=== PATIENT | male | born 1940 | race Caucasian/White ===

== ENCOUNTER 2017-03-06 15:06 | Inpatient (IN) | payer MEDICARE, MEDICAID ==
[~2017-03-06] VITALS: Ht 172.7 cm; Wt 99.8 kg
[~2017-03-06 15:06] MED LIST: ACET-2799 PO; ALLO100T PO; ASCO-375 PO; ASPI-605 PO; ATOR80TA PO; BACL10TA PO; BISA10SU8 RC; CLOP75TA15 PO; Cephalexin Monohydrate PO; DOCU-141 PO; DULO30CA2 PO; FERR-58 PO; FLUD0.1T PO; FOLI0.8C PO; FURO-152 PO; GABA-534 PO; HYDR-3026 PO; HYDR-3326 PO; HYDR-552 PO; LACT10SO7 PO; LEVE500T20 PO; LORA10TA7 PO; MAGN400O6 PO; MIDO5TAB PO; POTA10CA43 PO; RISP0.5T5 PO; TEMA15CA5 PO; TRAZ-144 PO
[2017-03-06] MEDS ORDERED: HYDR30CR10 TP (15:37)
[2017-03-06] MEDS ORDERED: GEL100GE TOP (15:37)
--- NOTE | 2017-03-06 15:38 | NUR ---
PT IS IN ROOM #2B. DR LIU EVALUATED THE PT.
[2017-03-06 16:03] LABS: BASOPHILS % (AUTO) 0.6 % (0.0-2.0); EOSINOPHILS # (AUTO) 0.4 K/uL (0.0-0.7); EOSINOPHILS % (AUTO) 5.3 % (0.0-7.0); HEMOGLOBIN 10.7 G/DL (14.0-18.0); LYMPHOCYTES # (AUTO) 1.4 K/UL (0.8-4.8); LYMPHOCYTES % (AUTO) 18.4 % (20.5-51.5); MEAN CORPUSCULAR HEMOGLOBIN 23.1 UUG (27.0-31.0); MEAN CORPUSCULAR HGB CONC 32 g/dL (32.0-37.0); MEAN CORPUSCULAR VOLUME 73.6 FL (82.0-92.0); MONOCYTES # (AUTO) 1.1 K/UL (0.1-1.30); MONOCYTES % (AUTO) 14.5 % (0.0-11.0); NEUTROPHILS # (AUTO) 4.7 K/UL (1.8-8.9); NEUTROPHILS % (AUTO) 61.2 % (38.5-71.5); PLATELET COUNT (AUTO) 218 K/UL (150-450); RED BLOOD CELL COUNT(AUTO) 4.62 MIL/UL (4.7-6.1); WHITE BLOOD COUNT (AUTO) 7.6 K/UL (4.0-11.2)
[2017-03-06 16:08] LABS: CARBON DIOXIDE 28 mmol/L (21-32); CHLORIDE 110 mmol/L (98-107); CREATININE 2.5 mg/dL (0.6-1.3); GLUCOSE 103 mg/dL (74-106); UREA NITROGEN, BLOOD 39 mg/dL (7-18)
[2017-03-06 16:09] LABS: ETHANOL < 3 MG/DL (0-0)
[2017-03-06 16:15] LABS: ALANINE AMINOTRANSFERASE 20 U/L (16-63); ALKALINE PHOSPHATASE 74 U/L (50-136); ASPARTATE AMINOTRANSFERASE 9 U/L (15-37); BILIRUBIN,DIRECT 0.1 mg/dL (0.0-0.2); BILIRUBIN,TOTAL 0.3 mg/dL (0.2-1.0); TOTAL PROTEIN, SERUM 6.6 g/dL (6.4-8.2)
--- NOTE | 2017-03-06 16:24 | NUR ---
MIKE DE LA GARZA WAS CALLED TO EVALUATE THE PT. RIKI IS 30 MINUTES.
[2017-03-06 17:02] LABS: BASOPHILS % (MANUAL) 2 % (0-2); EOSINOPHILS % (MANUAL) 2 % (0-8); LYMPHOCYTES % (MANUAL) 18 % (20-40); METAMYELOCYTES % 1 % (0-1); MONOCYTES % (MANUAL) 13 % (2-10); MYELOCYTES % 1 % (0-0); NEUTROPHILS % (MANUAL) 63 % (42-75)
[2017-03-06] MEDS ORDERED: HYDROCODONE/APAP 5-325MG TABLET PO ONE (17:15)
[2017-03-06] MEDS ORDERED: HYDROCODONE/APAP 5-325MG TABLET ONE (17:33)
--- NOTE | 2017-03-06 19:10 | NUR ---
Pt arrived on a gurney from ER. Pt is from the [facility]. Pt is on a 5150 GD for kicking, fondling, and making aggressive statements to nurses. Pt inappropriately touches himself and others. Upon admission pt is cooperative, calm, grabbing staff forearms. Pt has poor boundaries setting. Pt body was assessed. Pt has possible bursitis on both elbows,pitting edema on left foot +2, rash on left groin and back. photos were taken and put into chart. Pt denies suicidal ideation and contracts for safety inside and outside of the hospital.
[2017-03-06] MEDS ORDERED: LORAZEPAM 1 MG TABLET PO PRN (20:15)
[2017-03-06] MEDS ORDERED: ACETAMINOPHEN 325 MG TABLET PO PRN (20:15)
[2017-03-06] MEDS ORDERED: ZOLPIDEM 5 MG TABLET PO PRN (20:15)
[2017-03-06] MEDS ORDERED: MAGNESIUM HYDROXIDE 30 ML LIQUID UDC PO PRN (20:15)
[2017-03-06] MEDS ORDERED: MAG HYDROX/AL HYDROX/SIMETH 30 ML LIQUID UDC PO PRN (20:15)
[2017-03-06] MEDS ORDERED: HYDROCODONE/APAP 5-325MG TABLET PO PRN (21:00)
[2017-03-06] MEDS ORDERED: LACTULOSE 20 G/30 ML LIQUID UDC PO PRN (21:00)
[2017-03-06] MEDS ORDERED: CLOPIDOGREL 75 MG TABLET PO SCH (21:00)
[2017-03-06] MEDS ORDERED: BISACODYL 10 MG SUPP.RECT RC PRN (21:00)
[2017-03-06] MEDS ORDERED: MIDODRINE HCL 5 MG TABLET PO SCH (21:00)
[2017-03-06] MEDS ORDERED: LORATADINE 10 MG TABLET PO SCH (21:00)
[2017-03-06 21:03] VITALS: BP 118/68
[2017-03-06] MEDS: ATORVASTATIN 40 MG TABLET PO SCH (21:47)
[2017-03-06] MEDS: BACLOFEN 10 MG TABLET PO SCH (21:48)
[2017-03-06] MEDS: HYDROCORTISONE 1% CREAM 30 GM TUBE TP SCH (21:50)
[2017-03-06] MEDS: MIDODRINE HCL 2.5 MG TABLET PO SCH (22:00)
[2017-03-06] MEDS: DOCUSATE SODIUM 100 MG CAPSULE PO SCH (22:01)
[2017-03-06] MEDS: hydrOXYzine HCL 25 MG TABLET PO PRN (22:01)
[2017-03-06] MEDS: GABAPENTIN 300 MG CAPSULE PO SCH (22:02)
[2017-03-06] MEDS: LEVETIRACETAM 500 MG TABLET PO SCH (22:02)
[2017-03-07] MEDS: MIDODRINE HCL 2.5 MG TABLET PO SCH ×3 (06:00→22:01)
[2017-03-07 07:30] VITALS: BP 145/69
[2017-03-07] MEDS: BACLOFEN 10 MG TABLET PO SCH ×3 (09:00→17:12)
[2017-03-07] MEDS ORDERED: CLOPIDOGREL 75 MG TABLET PO SCH (09:00)
[2017-03-07] MEDS ORDERED: MISCELLANEOUS MED TP SCH (09:00)
[2017-03-07] MEDS: FLUDROCORTISONE ACETATE 0.1 MG TABLET PO SCH (09:00)
[2017-03-07] MEDS: HYDROCORTISONE 1% CREAM 30 GM TUBE TP SCH ×2 (09:00→17:12)
[2017-03-07] MEDS ORDERED: DULOXETINE 30 MG CAPSULE.DR PO SCH (09:15)
[2017-03-07] MEDS: GABAPENTIN 300 MG CAPSULE PO SCH ×2 (10:10→16:59)
[2017-03-07] MEDS: ASPIRIN EC 81 MG TABLET.DR PO SCH (10:10)
[2017-03-07] MEDS: FOLIC ACID 0.4 MG TABLET PO SCH (10:10)
[2017-03-07] MEDS: FUROSEMIDE 20 MG TABLET PO SCH (10:11)
[2017-03-07] MEDS: POTASSIUM CHLORIDE 10 MEQ CAPSULE.SA PO SCH (10:11)
[2017-03-07] MEDS: FERROUS SULFATE 325 MG TABEC PO SCH (10:11)
[2017-03-07] MEDS: ASCORBIC ACID 500 MG TABLET PO SCH (10:11)
[2017-03-07] MEDS: LEVETIRACETAM 500 MG TABLET PO SCH ×2 (10:11→16:58)
[2017-03-07] MEDS: DOCUSATE SODIUM 100 MG CAPSULE PO SCH ×3 (10:12→17:00)
[2017-03-07] MEDS: ALLOPURINOL 100 MG TABLET PO SCH (10:12)
--- NOTE | 2017-03-07 10:43 | NUR ---
Initial discharge instructions: Pt resides at the [facility] [[address] [place], [place],[address]].Per pt,he would like to return back to the facility.ANNE attempted to contact Christina [phone] and left a voicemail requesting a call back.Pt's daughter,Consuelo Casas [phone] was called as well.ANNE will speak with pt,daughter,and MD regarding appropriate discharge plans.ANNE will form a safe and proper discharge.
--- NOTE | 2017-03-07 11:00 | NUR ---
RE PLAVIX: SPOKE WITH JESUS AT [facility] TO VERIFY INDICATION AND DOSAGE OF PLAVIX, STATES THE COMPUTERS ARE DOWN AND SHE WILL CALL ME BACK TO LET ME KNOW.
--- NOTE | 2017-03-07 12:00 | NUR ---
SPOKE WITH DAUGHTER TRENA, SHE IS ASKING THAT WE DISCHARGE THE PT BACK TO [facility] TODAY. I EXPLAINED THAT THE PT IS ON A 72 HR INVOLUNTARY HOLD, TRENA INSISTS THAT PT SHOULD BE DISCHARGED ANYWAYS. PAGED DR SWENSON SO TRENA COULD SPEAK WITH HIM. UPON FOLLOW UP WITH DR SWENSON, HE STATES THAT HE WOULD BE OK WITH DISCHARGING THE PT ONLY IF [facility] WOULD TAKE THE BACK TODAY. TRENA STATES SHE IS GOING TO HAVE A MEETING WITH THE STAFF AT [facility] AND WILL CALL US IF THEY AGREE TO TAKE PT BACK TODAY.
--- NOTE | 2017-03-07 13:46 | NUR ---
RE PLACEMENT: SPOKE WITH CHARLOTTE FROM [facility]. SHE STATES THAT SHE BELIEVES THEY WILL TAKE THE PT BACK, BUT WOULD LIKE THE PT TO BE STABILIZED FIRST.
--- NOTE | 2017-03-07 14:27 | NUR ---
patient sleeping couldnt wake for meds
[2017-03-07 15:00] VITALS: BP 121/68
--- NOTE | 2017-03-07 15:23 | NUR ---
1500: DAUGHTER TRENA IN UNIT UPSET, YELLING AT NURSES AND TALKING OVER THEM, DEMANDING PT BE DISCHARGED, REPEATEDLY THREATENING TO ARA. EXPLAINED AGAIN THAT PT IS ON A INVOLUNTARY HOLD AND CAN NOT BE RELEASED AT THIS TIME, NOTIFIED HER THAT ALTHOUGH DR SWENSON WAS WILLING TO RELEASE THE HOLD IF THE [facility] WAS WILLING TO TAKE PT BACK TODAY, THAT CHARLOTTE FROM [facility] STATED THEY WANTED THE PT TO STAY HERE FOR EVALUATION AND TO BE STABILIZED BEFORE ACCEPTING PT BACK. TRENA WAS ASKED TO STEP OFF THE UNIT BECAUSE VISITING HOURS WERE OVER, SHE REFUSED TO LEAVE SO SECURITY AND ADMINSTRATION WAS CALLED TO ESCORT HER OFF THE UNIT.
--- NOTE | 2017-03-07 18:34 | NUR ---
INAPPROPRIATE PT BEHAVIOR: STAFF PROVIDING PERSONAL CARE TO PT REPORTS THAT PT MADE 6 ATTEMPTS THROUGHOUT THE SHIFT TO INAPPROPRIATELY TOUCH FEMALE STAFF MEMBERS (GRAB THEIR BREASTS AND OR GENITAL REGION). STAFF MEMBER STATES THAT SHE HAD TO REPEATEDLY BLOCK HIS HAND AND PUSH HIS ARM AWAY OR JUMP BACK TO AVOID BEING GROPED.
--- NOTE | 2017-03-07 18:43 | NUR ---
patients daughter came in today very dis ruptive to unit and to staff regarding getting her father out of here and he did nothing to those ladies , called DR rosenbaum and she spoke to him back and forth confusion , patient safe and positioned and bathed . Patient is med compliant andeats 100% AUTO PARTS CLERK NOTED AND LSIDE PLUS 2 PITTING EDEMA , PT IS TOTAL CARE INCONTINENT OF BOWEL AND BLADDER WITH SKIN CARE, SIDE RAILS UP TIMES TWO FOR SAFETY
[2017-03-07] MEDS: ATORVASTATIN 40 MG TABLET PO SCH (20:09)
[2017-03-07] MEDS: QUETIAPINE FUMARATE 25 MG TABLET PO SCH (20:10)
[2017-03-07 21:58] VITALS: BP 136/74
[2017-03-08] MEDS: MIDODRINE HCL 2.5 MG TABLET PO SCH ×3 (06:19→21:42)
--- NOTE | 2017-03-08 06:37 | NUR ---
patient slept for approx 7 hrs through the night. no inappropriate sexual behavior was noted during the shift. no aggression, anxiety was noted during the shift. pt calm and cooperative with medication regiment and plan of care.
[2017-03-08 07:30] VITALS: BP 133/80
[2017-03-08] MEDS: GABAPENTIN 300 MG CAPSULE PO SCH ×2 (09:01→16:32)
[2017-03-08] MEDS: ASPIRIN EC 81 MG TABLET.DR PO SCH (09:01)
[2017-03-08] MEDS: FUROSEMIDE 20 MG TABLET PO SCH (09:01)
[2017-03-08] MEDS: BACLOFEN 10 MG TABLET PO SCH ×3 (09:01→16:34)
[2017-03-08] MEDS: FERROUS SULFATE 325 MG TABEC PO SCH (09:01)
[2017-03-08] MEDS: ALLOPURINOL 100 MG TABLET PO SCH (09:01)
[2017-03-08] MEDS: FLUDROCORTISONE ACETATE 0.1 MG TABLET PO SCH (09:02)
[2017-03-08] MEDS: POTASSIUM CHLORIDE 10 MEQ CAPSULE.SA PO SCH (09:02)
[2017-03-08] MEDS: DOCUSATE SODIUM 100 MG CAPSULE PO SCH ×2 (09:02→16:32)
[2017-03-08] MEDS: hydrOXYzine HCL 25 MG TABLET PO PRN (09:02)
[2017-03-08] MEDS: LEVETIRACETAM 500 MG TABLET PO SCH ×2 (09:02→16:32)
[2017-03-08] MEDS: ASCORBIC ACID 500 MG TABLET PO SCH (09:03)
[2017-03-08] MEDS: FOLIC ACID 0.4 MG TABLET PO SCH (09:03)
[2017-03-08] MEDS: CLOPIDOGREL 75 MG TABLET PO SCH (09:04)
[2017-03-08] MEDS: HYDROCORTISONE 1% CREAM 30 GM TUBE TP SCH ×2 (11:35→16:34)
--- NOTE | 2017-03-08 16:21 | NUR ---
CONSULT ORDER PLACE FOR NEW ADMISSION, PATIENT IS 76 Y/O MALE WHO PRESENT FOR BEHAVIORAL ESCALATION,TOLERATING CURRENT DIET (CARDIAC),EATING 50-100% OF MEALS BMI 33.5-OBESITY,PHYSICAL ASSESSMENT REPORT SUGGEST NO OVERT MALNUTRITION 03/06 BUN/CR-39/2.5(H/H),RBC-4.62,HGB/HCT-10.7/34(L/L), BM PRESENT WNL, SKIN RASH NUTRITION DIAGNOSIS: ALTERED NUTRITION LABS RELATED TO CHRONIC KIDNEY DISEASE EVIDENCED BY ABOVE LABS INTERVENTION: APPLICATION SUPPORT ADMINISTRATOR ON BOARD, IF BUN/CR CONTINUE TO TREND UP, WILL REC PROTEIN RESTRICTED DIET MONITOR:PO INTAKE,WEIGHT,LABS OUTCOME: MAINTAIN 100% OF PO INTAKE DURING HOSPITAL STAY 'NO N/V/D/C NO SIGNIFICANT WEIGHT CHANGES DURING HOSPITAL STAY IMPROVE IN LABS,BUN/CR Addendum: 03/09/17 at [address] Amended: Links added.
[2017-03-08 17:27] VITALS: BP 127/73
[2017-03-08] MEDS: ATORVASTATIN 40 MG TABLET PO SCH (20:04)
[2017-03-08] MEDS: QUETIAPINE FUMARATE 25 MG TABLET PO SCH (20:04)
[2017-03-08 20:07] VITALS: BP 138/79
[2017-03-09] MEDS: MIDODRINE HCL 2.5 MG TABLET PO SCH ×3 (06:00→21:54)
--- NOTE | 2017-03-09 06:59 | NUR ---
GPS: REMAIN CALM AND COOPERATIVE WITH MEDS AND CARE. ASSISTED WITH ADL'S.SLEPT 7 HRS THROUGH THE NIGHT. CONTINUE PLAN OF CARE.
[2017-03-09 07:30] VITALS: BP 147/81
[2017-03-09 08:13] LABS: BASOPHILS % (AUTO) 0.6 % (0.0-2.0); MONOCYTES # (AUTO) 0.8 K/UL (0.1-1.30); NEUTROPHILS # (AUTO) 5.2 K/UL (1.8-8.9)
[2017-03-09 08:15] LABS: BASOPHILS # (AUTO) 0.1 K/uL (0.0-8.0); EOSINOPHILS # (AUTO) 0.4 K/uL (0.0-0.7); EOSINOPHILS % (AUTO) 4.4 % (0.0-7.0); HEMATOCRIT 34.5 % (40-50); LYMPHOCYTES # (AUTO) 1.8 K/UL (0.8-4.8); LYMPHOCYTES % (AUTO) 21.3 % (20.5-51.5); MEAN CORPUSCULAR HEMOGLOBIN 23.1 UUG (27.0-31.0); MEAN CORPUSCULAR HGB CONC 32 g/dL (32.0-37.0); MEAN CORPUSCULAR VOLUME 72.6 FL (82.0-92.0); MONOCYTES % (AUTO) 9.9 % (0.0-11.0); NEUTROPHILS % (AUTO) 63.8 % (38.5-71.5); PLATELET COUNT (AUTO) 209 K/UL (150-450); RED BLOOD CELL COUNT(AUTO) 4.75 MIL/UL (4.7-6.1); WHITE BLOOD COUNT (AUTO) 8.3 K/UL (4.0-11.2)
[2017-03-09] MEDS ORDERED: LORATADINE 10 MG TABLET PO SCH (09:00)
[2017-03-09] MEDS: HYDROCORTISONE 1% CREAM 30 GM TUBE TP SCH ×2 (09:14→16:54)
[2017-03-09 09:15] LABS: ALANINE AMINOTRANSFERASE 20 U/L (16-63); ALKALINE PHOSPHATASE 85 U/L (50-136); ASPARTATE AMINOTRANSFERASE 12 U/L (15-37); BILIRUBIN,TOTAL 0.4 mg/dL (0.2-1.0); CARBON DIOXIDE 29 mmol/L (21-32); CHLORIDE 106 mmol/L (98-107); CREATININE 2.2 mg/dL (0.6-1.3); GLUCOSE 125 mg/dL (74-106); MAGNESIUM 2.2 mg/dL (1.8-2.4); PHOSPHOROUS 3.8 mg/dL (2.5-4.9); POTASSIUM 4.6 mmol/L (3.5-5.1); TOTAL PROTEIN, SERUM 6.7 g/dL (6.4-8.2); UREA NITROGEN, BLOOD 39 mg/dL (7-18)
[2017-03-09] MEDS: FLUDROCORTISONE ACETATE 0.1 MG TABLET PO SCH (09:32)
[2017-03-09] MEDS: GABAPENTIN 300 MG CAPSULE PO SCH ×2 (09:32→16:54)
[2017-03-09] MEDS: hydrOXYzine HCL 25 MG TABLET PO PRN (09:32)
[2017-03-09] MEDS: ASPIRIN EC 81 MG TABLET.DR PO SCH (09:32)
[2017-03-09] MEDS: FUROSEMIDE 20 MG TABLET PO SCH (09:32)
[2017-03-09] MEDS: FOLIC ACID 0.4 MG TABLET PO SCH (09:32)
[2017-03-09] MEDS: FERROUS SULFATE 325 MG TABEC PO SCH (09:32)
[2017-03-09] MEDS: ALLOPURINOL 100 MG TABLET PO SCH (09:32)
[2017-03-09] MEDS: CLOPIDOGREL 75 MG TABLET PO SCH (09:32)
[2017-03-09] MEDS: DOCUSATE SODIUM 100 MG CAPSULE PO SCH ×2 (09:33→16:54)
[2017-03-09] MEDS: POTASSIUM CHLORIDE 10 MEQ CAPSULE.SA PO SCH (09:33)
[2017-03-09] MEDS: ASCORBIC ACID 500 MG TABLET PO SCH (09:33)
[2017-03-09] MEDS: LEVETIRACETAM 500 MG TABLET PO SCH ×2 (09:33→16:55)
[2017-03-09] MEDS: BACLOFEN 10 MG TABLET PO SCH ×3 (09:33→16:55)
--- NOTE | 2017-03-09 11:20 | NUR ---
PT PLACED ON VOLUNTARY STATUS BY DR. MCKEON, DR. MCKEON STATED THAT IF THE [facility] IS OK TO ACCEPT PT BACK TODAY, PT CAN BE DISCHARGED. DR. MCKEON SPOKE TO PT'S . RECEIVED A CALL FROM THE [facility] WORD PROCESSING MACHINE OPERATOR STATING THAT THE PT'S DAUGHTER EFRAIN IS SPEAKING TO HER, DEMANDING FOR [facility] TO ACCEPT PT TODAY, BUT WAS ALREADY INFORMED THAT THAT CANNOT BE DONE ON THE WEEKEND, CONSIDERING THE AGER OPERATOR NEEDS TO GIVE THE OK FOR THE APPROVAL AND THEIR IS NO SENSE OF URGENCY ESPECIALLY BECAUSE THE PT HAS A BED HOLD THERE. RECEIVED A CALL FROM PT'S SON WHO STATED HE NEEDS FOR HIS FATHER TO BE DISCHARGED RIGHT NOW AND THAT [facility] IS ACCEPTING THE PT. INFORMED SON THAT [employer]PLAINT [employer]ATIONS OFFICER HAD JUST SPOKEN TO ADMISSIONS AND THEY STATED THEY ARE NOT TODAY SO I'M NOT SURE WHO IS GIVING HIM THIS INFORMATION. POSSIBLY TOMORROW AFTER REEVALUATION OF PT. PT'S SON STATES HE IS GETTING CONFLICTING REPORTS FROM BOTH SIDES, AND THAT [facility] TOLD HIM THEY ARE ACCEPTING HIM. INFORMED HIM THAT IF THEY ARE, THAT'S NOT A PROBLEM, BUT [facility] HAS TO RECEIVED OFFICIAL APPROVAL FROM [facility] BY ADMISSIONS OR AGER OPERATOR, AND REITERATED THAT [employer] OFFICER JUST SPOKE TO ADMISSIONS AND THEY ARE NOT ACCEPTING OF PT AT THIS TIME.
--- NOTE | 2017-03-09 13:18 | NUR ---
GPS: Nursing Notes: Thought Disorder: Patient is awake and responding to his name, cooperative with nursing care, compliant with his medications, episodes of trying to rub ETHYLBENZENE CONVERTER HELPER"s body softly when assisting him with ADL's, setting limits and constantly remind him where to keep his right hand when changing his diaper and when turn him Q2hrs, cooperative, but forgetful at times, unable to formulate a viable plan for self care, continue with treatment plan.
--- NOTE | 2017-03-09 13:26 | NUR ---
RECEIVED A CALL FROM THE [facility], SPOKE TO KRYSTAL, STATING THAT BECAUSE PT IS STILL EXHIBITING SIGNS OF INAPPROPRIATE BEHAVIOR THEY CANNOT ACCEPT THE PT TODAY AND WILL HAVE AN IDT MEETING TOMORROW WITH FAMILY INVOLVEMENT TO DISCUSS FURTHER PLAN OF CARE. KRYSTAL STATED FAMILY IS AGREEABLE TO THIS AT THIS TIME.
[2017-03-09 13:28] LABS: BAND % (MANUAL) 4 % (0-10); EOSINOPHILS % (MANUAL) 1 % (0-8); LYMPHOCYTES % (MANUAL) 20 % (20-40); MONOCYTES % (MANUAL) 15 % (2-10); NEUTROPHILS % (MANUAL) 60 % (42-75)
[2017-03-09 15:48] VITALS: BP 116/80
[2017-03-09 20:19] VITALS: BP 132/71
[2017-03-09] MEDS: QUETIAPINE FUMARATE 25 MG TABLET PO SCH (20:32)
[2017-03-09] MEDS: ATORVASTATIN 40 MG TABLET PO SCH (20:32)
[2017-03-10] MEDS: MIDODRINE HCL 2.5 MG TABLET PO SCH (06:33)
[2017-03-10 07:30] VITALS: BP 135/75
[2017-03-10] MEDS: FERROUS SULFATE 325 MG TABEC PO SCH (08:42)
[2017-03-10] MEDS: DOCUSATE SODIUM 100 MG CAPSULE PO SCH (08:42)
[2017-03-10] MEDS: ALLOPURINOL 100 MG TABLET PO SCH (08:43)
[2017-03-10] MEDS: GABAPENTIN 300 MG CAPSULE PO SCH (08:43)
[2017-03-10] MEDS: ASCORBIC ACID 500 MG TABLET PO SCH (08:43)
[2017-03-10] MEDS: POTASSIUM CHLORIDE 10 MEQ CAPSULE.SA PO SCH (08:43)
[2017-03-10] MEDS: LEVETIRACETAM 500 MG TABLET PO SCH (08:43)
[2017-03-10] MEDS: FUROSEMIDE 20 MG TABLET PO SCH (08:43)
[2017-03-10] MEDS: FOLIC ACID 0.4 MG TABLET PO SCH (08:44)
[2017-03-10] MEDS: FLUDROCORTISONE ACETATE 0.1 MG TABLET PO SCH (08:44)
[2017-03-10] MEDS: CLOPIDOGREL 75 MG TABLET PO SCH (08:44)
[2017-03-10] MEDS: hydrOXYzine HCL 25 MG TABLET PO PRN (08:44)
[2017-03-10] MEDS: HYDROCORTISONE 1% CREAM 30 GM TUBE TP SCH (08:44)
[2017-03-10] MEDS: ASPIRIN EC 81 MG TABLET.DR PO SCH (08:44)
[2017-03-10] MEDS: BACLOFEN 10 MG TABLET PO SCH ×2 (08:46→12:49)
--- NOTE | 2017-03-10 10:24 | NUR ---
GPS: Nursing notes: Refusing For Pictures to be Taken: Patient is refusing for pictures to be taken, "do not bother me.. I want to rest..", "No... Pictures..", continue with his discharge.
--- NOTE | 2017-03-10 12:10 | NUR ---
DC Note: Patient will be discharged back to the [facility] [[address] [place], [address]; [phone]] via ambulance at 1:00pm. Patient will go to [facility] to room 163 B. Spoke with Christina [phone] at the facility who stated they would accept the patient today. Spoke with patients daughter, Consuelo Casas [phone] who is aware and agreeable with discharge plans. Patient is aware and agreeable with discharge plans. Patient will follow-up with (Retail Grocer) and was referred to , , and [phone] for outpatient referrals.
--- NOTE | 2017-03-10 13:15 | NUR ---
GPS: Nursing Notes: Discharge Notes: Patient is awake and responding to his name, cooperative with nursing care, compliant with his medications, denies any SI/HI, denies any AH/VH, denies any pain or discomfort, denies any SOB, discharge to [facility] at [address] [place] [address] , report given to Hanna BALDERAS, transported to facility via ambulance, took all his belongings with him. hop worker spoke with patients daughter, Consuelo Casas [phone] who is aware and agreeable with discharge plans. Patient is aware and agreeable with discharge plans. Patient will follow-up with (Head Cook) and was referred to , , and [phone] for outpatient referrals.
== END 2017-03-10 13:15 | DRG 885 ==
LOC: ER 15:07 → GPS 18:49
PROVIDERS: ADMIT Psychiatry & Neurology Psychiatry; ATTEND Internal Medicine
DX: F39 Unspecified mood [affective] disorder (principal); N18.9 Chronic kidney disease, unspecified; E11.22 Type 2 diabetes mellitus with diabetic chronic kidney disease; I13.0 Hypertensive heart and chronic kidney disease with heart failure and stage 1 through stage 4 chronic kidney disease, or unspecified chronic kidney disease; I50.9 Heart failure, unspecified; I69.859 Hemiplegia and hemiparesis following other cerebrovascular disease affecting unspecified side; J44.9 Chronic obstructive pulmonary disease, unspecified; D63.1 Anemia in chronic kidney disease; M10.9 Gout, unspecified; F29 Unspecified psychosis not due to a substance or known physiological condition; G40.909 Epilepsy, unspecified, not intractable, without status epilepticus; I25.10 Atherosclerotic heart disease of native coronary artery without angina pectoris; Z79.899 Other long term (current) drug therapy; Z87.891 Personal history of nicotine dependence; Z73.6 Limitation of activities due to disability; G89.29 Other chronic pain; K21.9 Gastro-esophageal reflux disease without esophagitis
CPT/HCPCS: 36415; 70030-TC; 71010; 83735; 84100; 84443; 85025; 85730; 93005; 97530; A4663; G0480; G0480-TC